=== PATIENT | male | born 1960 | race African-American/Black ===

== ENCOUNTER 2016-12-05 06:36 | Emergency (ER) | payer SELFPAY ==
[~2016-12-05] VITALS: Ht 180.3 cm; Wt 102.3 kg
[2016-12-05 06:40] VITALS: BP 128/69; PULSE 75; RESP 14; TEMP 98.2; O2SAT 99
--- NOTE | 2016-12-05 07:20 | PD ---
HPI Chief Complaint: Pain: Acute or Chronic Time Seen by Provider: 07:11 Travel History International Travel<30 days: No Contact w/Intl Traveler<30days: No Traveled to known affect area: No History of Present Illness HPI 56-year-old male complains of right low back pain. Patient states that the pain started this morning. Patient states the pain is severe sharp pain localized to right low back area. Patient denies any pain radiation. Patient denies nausea vomiting. Patient denies any dysuria or frequency. Patient denies any fever chills. Patient denies any injury. On a scale of 1-10 the pain is a 9. Patient denies any history of kidney stone. Patient denied any history of aortic aneurysm. PFSH Past Medical History Medical History: Denies Significant Hx Tetanus Vaccination: > 5 Years LMP: 1 Past Surgical History Surgical History: No Previous Surgery Social History Alcohol Use: Yes Tobacco Use: Yes Allergies-Medications (Allergen,Severity, Reaction): Coded Allergies: No Known Allergies (Unverified , 12/05/16) Reported Meds & Prescriptions Reported Meds & Active Scripts Active No Active Prescriptions or Reported Medications Review of Systems General / Constitutional: No: Fever Eyes: No: Visual changes HENT: No: Headaches Cardiovascular: No: Chest Pain or Discomfort Respiratory: No: Shortness of Breath Gastrointestinal: No: Abdominal Pain Genitourinary: No: Dysuria Musculoskeletal: No: Pain Skin: No Rash Neurologic: No: Weakness Psychiatric: No: Depression Endocrine: No: Polydipsia Hematologic/Lymphatic: No: Easy Bruising Physical Exam Narrative GENERAL: Well-nourished, well-developed patient. SKIN: Focused skin assessment warm/dry. HEAD: Normocephalic. EYES: No scleral icterus. No injection or drainage. NECK: Supple, trachea midline. No JVD or lymphadenopathy. CARDIOVASCULAR: Regular rate and rhythm without murmurs, gallops, or rubs. RESPIRATORY: Breath sounds equal bilaterally. No accessory muscle use. GASTROINTESTINAL: Abdomen soft, non-tender, nondistended. MUSCULOSKELETAL: No cyanosis, or edema. BACK: Moderate tenderness on palpation right low back, without obvious deformity. No CVA tenderness. Neurologic exam normal. Data Data Last Documented VS Vital Signs Date Time Temp Pulse Resp B/P Pulse Ox O2 Delivery O2 Flow Rate FiO2 12/05/16 06:40 98.2 75 14 128/69 99 Orders Urinalysis - C+S If Indicated (12/05/16 07:15) Ct Abd/Pel W/O Iv Contrast (12/05/16 07:16) Ketorolac Inj (Toradol Inj) (12/05/16 07:30) MDM Medical Decision Making Medical Screen Exam Complete: Yes Emergency Medical Condition: Yes Differential Diagnosis Differential diagnosis including musculoskeletal, nephrolithiasis, pyelonephritis, abdominal aortic aneurysm. Narrative Course 56-year-old male with sudden onset the severe right low back pain. Toradol 30 mg IV. Diagnosis Primary Impression: Lumbar strain Qualified Code: S39.012A - Lumbar strain, initial encounter Patient Instructions: General Instructions Additional Instructions: Take medication as needed for pain. Apply moist heat to the back. Follow-up with personal physician and orthopedist. Return if worse. Med/Other Pt SpecificInfo: Prescription(s) given Scripts Tramadol (Ultram)50 Mg Tab50 Mg PO Q6H PRN (PAIN) #20 TAB Prov:Laron Lawrence MD 12/05/16 Methocarbamol (Robaxin)750 Mg Ujt385 Mg PO QID #40 TAB Prov:Laron Lawrence MD 12/05/16 Meloxicam (Mobic)15 Mg Tab15 Mg PO DAILY #20 TAB Prov:Laron Lawrence MD 12/05/16 Disposition: 01 DISCHARGE HOME Condition: Stable Laron Lawrence MD December 05, 2016 07:20
[2016-12-05] MEDS ORDERED: KETOROLAC TROMETHAMINE 30 MG/ML (IVP) VIAL IV PUSH ONE (07:30)
--- NOTE | 2016-12-05 07:44 | RADRPT ---
EXAM DATE/TIME: 12/05/2016 07:27 [facility] COMPARISON: No previous studies available for comparison. INDICATIONS : Right flank pain today. ORAL CONTRAST: No oral contrast ingested. RADIATION DOSE: 8.51 CTDIvol (mGy) MEDICAL HISTORY : None SURGICAL HISTORY : None. ENCOUNTER: Initial ACUITY: 1 day PAIN SCALE: 9/10 LOCATION: Right flank TECHNIQUE: Volumetric scanning of the abdomen and pelvis was performed. Using automated exposure control and ad justment of the mA and/or kV according to patient size, radiation dose was kept as low as reasonably achievable to obtain optimal diagnostic quality images. FINDINGS: There is a small hiatal hernia. Liver, gallbladder, bilateral kidneys, bilateral adrenal glands, panc reas, spleen and small bowel are unremarkable. Urinary bladder, prostate enlarged bowel are unremarka ble. The appendix is normal tear there is no adenopathy or aneurysm. Atherosclerotic calcifications o f the aorta and iliac vessels are noted. There are postsurgical changes in the right inguinal region. Degenerative changes of the spine are noted. CONCLUSION: No acute disease. Thien Luis MD on December 05, 2016 at 7:41 Board Certified Radiologist. This report was verified electronically.
[2016-12-05] MEDS ORDERED: ROBA750T PO (07:50)
[2016-12-05] MEDS ORDERED: ULTR50TA5 PO (07:50)
[2016-12-05] MEDS ORDERED: MOBI15TA PO (07:50)
== END 2016-12-05 08:53 | disposition home or self-care (01) ==
LOC: NEPE 06:36
DX: S39.012A Strain of muscle, fascia and tendon of lower back, initial encounter (principal); X58.XXXA Exposure to other specified factors, initial encounter; Z72.0 Tobacco use
CPT/HCPCS: 74176; 96374; 99284; J1885